=== PATIENT | female | born 1985 | race Caucasian/White ===

== ENCOUNTER → 2021-06-09 11:30 | Outpatient (CLI) | payer OTHER, SELFPAY ==
--- NOTE | 2021-06-09 12:29 | DI.CT.S_ITS ---
PROCEDURE: CT ABDOMEN PELVIS W CON INDICATIONS: Umbilical pain TECHNIQUE: After the administration of oral and IV contrast, axial sections were acquired from the lung bases to the pubic symphysis. Coronal and sagittal reformats were performed. For radiation dose reduction, the following was used: automated exposure control, adjustment of mA and/or kV according to patient size. COMPARISON: None. FINDINGS: Image quality: Excellent. Lung bases: Unremarkable. Heart: No significant findings. ABDOMEN: Liver: Unremarkable. Gallbladder: Unremarkable. Biliary ducts: Unremarkable. Pancreas: Unremarkable. Spleen: Unremarkable. Adrenal Glands: Unremarkable. Kidneys and Ureters: Unremarkable. Stomach and Bowel: Stomach, small bowel loops, and colon are unremarkable. Normal appendix. Peritoneum: No abnormal intraperitoneal fluid. No free air. Ventral Wall: Trace fat containing periumbilical hernia. Abdominal Nodes: No retroperitoneal or mesenteric adenopathy by size criteria. Vessels: Aorta and inferior vena cava are normal in size. PELVIS: Pelvic Organs: Unremarkable. Bladder: Unremarkable. Pelvic Nodes: No enlarged lymph nodes. Miscellaneous: No inguinal hernias are seen. Bones: Unremarkable. IMPRESSION: 1. No significant abnormality. Dictated by: Alverto Caballero M.D. on 06/09/2021 at 13:29 Approved by: Alverto Caballero M.D. on 06/09/2021 at 13:32
== END ==
PROVIDERS: PCP Internal Medicine; Referring Provider Surgery; Visit Provider Surgery
DX: K42.9 Umbilical hernia without obstruction or gangrene (principal)
CPT/HCPCS: 74177

== ENCOUNTER 2022-01-11 21:36 | Emergency (ER) | payer OTHER, SELFPAY ==
[2022-01-11 21:42] VITALS: BP 145/90; PULSE 88; RESP 18; TEMP 36.6; O2SAT 99
--- NOTE | 2022-01-11 21:59 | DI.RAD.S_ITS ---
PROCEDURE: XR HAND LT MIN 3V INDICATIONS: Injury TECHNIQUE: 3 views of the hand acquired. COMPARISON: None. FINDINGS: Bones: No fractures or dislocations. Carpal bones are normally aligned. No suspicious bony lesions. Soft tissues: No radiopaque foreign bodies. No suspicious soft tissue calcifications. IMPRESSION: 1. No fractures or radiopaque foreign bodies. Dictated by: Jorge Chaudhari M.D. on 01/11/2022 at 23:54 Approved by: Jorge Chaudhari M.D. on 01/11/2022 at 23:55
--- NOTE | 2022-01-12 00:17 | ED_ITS ---
HPI - Extremity Injury (Upper) General Chief Complaint: Extremity Injury, Upper Stated Complaint: bite on hand from pig Time Seen by Provider: 01/11/22 21:49 Source: patient Mode of arrival: Ambulatory History of Present Illness HPI narrative: 36-year-old female nonsmoker without contributory medical history presents with a chief complaint of pain to her left index and middle finger after being bitten by her pet pig. Keep in mind, her pig ways upwards of 750 lb and bit with her molars when being fed let us. The patient has full but painful range of motion. There are no breaks in the skin. She denies any numbness, tingling or wea kness. She has pain with range of motion and improvement with rest. Related Data Home Medications Medication Instructions Recorded Confirmed B-complex with vitamin C 1 tab PO DAILY 05/24/21 05/31/21 budesonide-formoterol HFA 80 2 puff inhalation BID 05/24/21 05/31/21 mcg-4.5 mcg/actuation aerosol inhaler (Symbicort) bumetanide 2 mg tablet 2 mg PO BID 05/24/21 05/31/21 carvedilol 6.25 mg tablet 6.25 mg PO BID 05/24/21 05/31/21 losartan 25 mg tablet 25 mg PO BID 05/24/21 05/31/21 potassium chloride 20 mEq 20 meq PO DAILY 05/24/21 05/31/21 tablet,extended release(part/cryst) (Klor-Con M) spironolactone 25 mg tablet 25 mg PO DAILY 05/24/21 05/31/21 Previous Rx's Medication Instructions Recorded drospirenone 3 mg-ethinyl 1 tab PO DAILY #113 tabs 05/30/21 estradiol 0.02 mg tablet (BILL (28)) Allergies Allergy/AdvReac Type Severity Reaction Status Date / Time Penicillins Allergy Intermediate Hives Verified 05/31/21 13:42 Review of Systems Review of Systems Narrative: GENERAL: Denies chills, fatigue, malaise, fever, sweats. HEENT: Denies sinus pain, ear pain, sore throat, difficulty swallowing, dizziness. RESPIRATORY: Denies dyspnea, cough, wheezing, hemoptysis, sputum. CARDIOVASCULAR: Denies chest pain, palpitations, orthopnea, edema, GASTROINTESTINAL: Denies nausea, vomiting, abdominal pain, diarrhea, constipation, melena. : Denies dysuria, frequency, incontinence, hematuria, urinary retention. MUSCULOSKELETAL: See HPI SKIN: Denies rash, skin lesions, or other NEUROLOGIC: Denies weakness, headache, numbness, change in speech, confusion, seizures, incoordination. PSYCHIATRIC: No concerning psychosocial issues. 12 point review of systems is negative except for those stated above Patient History Medical History Anemia (~2014) Anxiety (~2008) Chicken pox (~1990) Fibromyalgia (~2011) Infertility Ovarian cyst Painful menstrual periods PCOS (polycystic ovarian syndrome) Social History Smoking Status: Never smoker Smoking Status: Never smoker alcohol intake frequency: holidays/special occasions only Substance Use Type: does not use Exam Narrative Exam Narrative: GEN: AOx3 and in mild distress EYES: Pupils are equal, round, and reactive to light and accommodation. Extraoccular muscles are intact bilaterally. There is no subconjunctival hemorrhage or exudate. CHEST: Lungs are clear to auscultation bilaterally and free of wheezes, rales, or rhonchi. Heart rate is regular rhythm, there are no murmurs, clicks, rubs, or gallops. There is no chest wall tenderness. ABD: Abdomen is soft and nontender. There is no guarding or rebound. Bowel sounds are normal in all 4 quadrants. There is no mass or organomegaly. EXT: Full but painful range of motion of index and middle finger on left hand with no obvious external manifestation of injury. SKIN: Warm, pink, and dry. No erythema or rash Initial Vital Signs Initial Vital Signs: Vital Signs Temperature 98 F 01/11/22 21:42 Pulse Rate 88 01/11/22 21:42 Respiratory Rate 18 01/11/22 21:42 Blood Pressure 145/90 H 01/11/22 21:42 Pulse Oximetry 99 01/11/22 21:42 Oxygen Delivery Method 01/11/22 21:42 Procedures Orthopedic Splinting/Casting Injury #1: Side: left Upper Extremity Injury Location: finger Upper Extremity Immobilizer: aluminum form splint Post splinting neuro exam: intact Post splinting vascular exam: intact Placed by: Nursing Course Orders Ordered: ED Orders 01/11/22 21:59 XR hand LT min 3V Stat Vital Signs Vital signs: Vital Signs - 8 hr 01/11/22 21:42 Temperature 98 F Pulse Rate 88 Respiratory Rate 18 Blood Pressure 145/90 H Pulse Oximetry 99 Oxygen Delivery Method Room Air MDM - Extremity Injury (Upper) Imaging Data Extremity x-ray #1: Radiologist's Impression: [address] [id number] ReportSigned Patient: Sandi Duncan DMR#: [id number]: 04/27/1973Acct:[id number]/Sex: 48 / FDate of Service: 01/11/22Loc: EDAccession Number: [id number] Procedure: XR elbow LT min 3V Ordering Provider: Bennett Galvan D.O. PROCEDURE: XR ELBOW LT MIN 3V INDICATIONS: fall with wrist injury TECHNIQUE: 3 views of the elbow were acquired. COMPARISON: None. FINDINGS: Bones: No fractures or dislocations. No suspicious bony lesions. Soft tissues: No elbow joint effusion. No suspicious soft tissue calcifications. IMPRESSION: 1. No fracture or dislocation. Dictated by: Jorge Chaudhari M.D. on 01/11/2022 at 22:37 Approved by: Jorge Chaudhari M.D. on 01/11/2022 at 22:38 Discharge Plan Departure Patient Disposition: Home Clinical Impression: Contusion of finger of left hand Instructions: DI for Contusion Activity Restrictions/Additional Instructions: *You have been diagnosed with [contusions to left index and middle finger. As we discussed your history and physical exam are reassuring and x-ray showed no obvious fracture or dislocation] *What to do: *Please continue to take your regular medications as directed. [ ] New medication prescriptions sent to your pharmacy: [ ] [ ] New medication written as a paper prescription [ ] No new medications given *Please follow up with your primary care provider in 2-3 days, call for an appointment. Let them know you were seen in the Emergency Department and that we ask that you be seen in follow up. We will electronically transmit a record of today's note if your PCP is in our system *If you do not have a primary care provider please contact the [facility] Resource line at [phone]. They will ask some questions about your medical history and help get you set up with a doctor in the community. *Return to Emergency Department if you should have any new, worsening or concerning symptoms, such as [fever greater than 101 F, shaking chills, worsening pain, persistent vomiting or other bothersome symptoms] Prescriptions: No Action drospirenone-ethinyl estradiol [BILL (28)] 3-0.02 mg tablet 1 tab PO DAILY Qty: 113 3RF Rx Instructions: Take 1 active pill daily x3 weeks, discard row of placebo tablets, and start a new pack of pills every 3 weeks. carvedilol 6.25 mg tablet 6.25 mg PO BID Rx Instructions: must administer with a meal/food spironolactone 25 mg tablet 25 mg PO DAILY losartan 25 mg tablet 25 mg PO BID budesonide-formoterol [Symbicort] 80-4.5 mcg/actuation HFA aerosol inhaler 2 puff inhalation BID bumetanide 2 mg tablet 2 mg PO BID B-complex with vitamin C Tablet 1 tab PO DAILY potassium chloride [Klor-Con M20] 20 mEq tablet,ER particles/crystals 20 meq PO DAILY Referrals: Sagar aSnz MD [Primary Care Provider] - Visit Report Forms: Patient Portal/API
--- NOTE | 2022-01-12 00:28 | PC.NURSE ---
2nd and 3rd fingers of the left hand sandra taped
== END 2022-01-12 00:29 | disposition home or self-care (01) ==
PROVIDERS: Emergency Provider Emergency Medicine; PCP Internal Medicine
DX: S60.022A Contusion of left index finger without damage to nail, initial encounter (principal); S60.032A Contusion of left middle finger without damage to nail, initial encounter; W55.41XA Bitten by pig, initial encounter
CPT/HCPCS: 73130; 99281; 99283

== ENCOUNTER 2022-06-30 22:15 | Emergency (ER) | payer OTHER, SELFPAY ==
[2022-06-30] VITALS (7 sets, daily range): BP systolic 112–162; BP diastolic 68–101; PULSE 82–117; RESP 15–36; O2SAT 99–100; BMI 40.1
--- NOTE | 2022-06-30 22:21 | DI.RAD.S_ITS ---
PROCEDURE: XR CHEST 1V INDICATIONS: chest pain TECHNIQUE: One view of the chest was acquired. COMPARISON: None. FINDINGS: Surgical changes and devices: None. Lungs and pleura: Lungs are clear. No pleural effusions or pneumothorax. Mediastinum: Mediastinal contours appear normal. Heart size is normal. Bones and chest wall: No suspicious bony lesions. Overlying soft tissues appear unremarkable. IMPRESSION: Normal for age, source of current chest pain symptoms is not seen. Dictated by: Manav Merritt M.D. on 06/30/2022 at 23:00 Approved by: Manav Merritt M.D. on 06/30/2022 at 23:00
--- NOTE | 2022-06-30 22:25 | DI.US.S_ITS ---
PROCEDURE: US ABDOMEN LIMITED INDICATIONS: SEVERE EPIGRASTRIC PAIN TECHNIQUE: Real-time focused scanning was performed of the abdomen, with image documentation. COMPARISON: None. FINDINGS: Liver measures 18 centimeters. Echogenic appearance overall. Gallbladder is unremarkable. Wall thickness is 2-3 millimeters. CBD measures 3 millimeters. Pancreas is unremarkable, only the head is visualized. IMPRESSION: No acute sonographic abnormality. Normal appearance of the gallbladder. Increased hepatic echogenicity, most commonly seen with steatosis. Dictated by: Ridge Miller M.D. on 07/02/2022 at 10:50 Approved by: Ridge Miller M.D. on 07/02/2022 at 10:51
[2022-06-30] MEDS: PANTOPRAZOLE 40 MG VIAL IV (22:38)
[2022-06-30] MEDS: SODIUM CHLORIDE 0.9% 1,000 ML 1000 ML IV (22:38)
[2022-06-30] MEDS: HYDROMORPHONE 1 MG INJ IV ×2 (22:38→23:09)
[2022-06-30] MEDS: ASPIRIN 81 MG CHEW TAB 324 MG PO (22:38)
[2022-06-30] MEDS: ONDANSETRON 4 MG/2 ML INJ IV (22:38)
[2022-06-30 22:45] LABS: Add Manual Diff / Slide Review NO; Basophils Absolute Auto 100 /uL (0-100); Basophils Percent Auto 1.1 % (0-2); Eosinophils Absolute Auto 300 /uL (0-450); Eosinophils Percent Auto 2.8 % (2-4); Hematocrit 39.6 % (36-46); Hemoglobin 13.3 g/dL (12.0-16.0); Lymphocytes Absolute Auto 3200 /uL (1100-4500); Lymphocytes Percent Auto 27.2 % (25-40); Mean Corpuscular HGB Conc 33.7 % (30-36); Mean Corpuscular Hemoglobin 28.2 PG (26-34); Mean Corpuscular Volume 83.7 fL (80-100); Monocytes Absolute Auto 700 /uL (0-900); Monocytes Percent Auto 5.6 % (3-14); Neutrophils Absolute Auto 7400 /uL (1500-7000); Neutrophils Percent Auto 63.3 % (50-75); Platelet Count 279 X10^3/uL (150-400); Red Blood Cell Count 4.73 X10^6/uL (4.0-5.2); Red Cell Distribution Width 12.7 % (11.6-14.8); White Blood Cell Count 11.8 X10^3/uL (4.5-11.0)
[2022-06-30 22:46] LABS: INR 1.1 (0.9-1.3); Prothrombin Time 13.1 SECONDS (10.1-12.7)
[2022-06-30 22:48] LABS: PTT Partial Thromboplastin Tim 36 SECONDS (26-36)
[2022-06-30 22:50] LABS: Alanine Aminotransferase 23 IU/L (<35); Albumin 4.5 g/dL (3.5-5.0); Albumin Globulin Ratio 1.2 (1.0-2.8); Alkaline Phosphatase 82 U/L (38-126); Aspartate Aminotransferase 31 IU/L (14-36); BUN Creatinine Ratio 17.2 (6-22); Bilirubin Total 0.5 mg/dL (0.2-1.3); Blood Urea Nitrogen 17 mg/dL (7-17); Calcium 9.1 mg/dL (8.4-10.2); Carbon Dioxide 25 mmol/L (22-32); Chloride 102 mmol/L (98-107); Creatine Kinase 167 U/L (30-135); Estimated Glomerular Filt Rate > 60 mL/min (>60); Globulin 3.7 g/dL (1.7-4.1); Glucose 93 mg/dL (70-100); Lipase 129 U/L (23-300); Magnesium 1.8 mg/dL (1.6-2.3); Potassium 3.8 mmol/L (3.4-5.1); Sodium 137 mmol/L (137-145); Total Protein 8.2 g/dL (6.3-8.2)
[2022-06-30 23:01] LABS: Troponin I < 0.012 ng/mL (0.01-0.034)
[2022-06-30 23:05] LABS: CKMB % Relative Index 1.3 % (1.5-5.0); Creatine Kinase MB 2.25 ng/mL (<2.37); HEMOLYSIS 25 (0-50)
[2022-06-30 23:14] LABS: D Dimer 1199 ng/ml (<500)
--- NOTE | 2022-06-30 23:24 | DI.CT.S_ITS ---
PROCEDURE: CT ABDOMEN PELVIS W CON INDICATIONS: severe abd pain TECHNIQUE: After the administration of intravenous contrast, axial sections acquired from the lung bases to the pubic symphysis. Coronal and sagittal reformats were performed. For radiation dose reduction, the following was used: automated exposure control, adjustment of mA and/or kV according to patient size. COMPARISON: [facility], CT, CT ABDOMEN PELVIS W CON, 06/09/2021, 12:25. FINDINGS: Image quality: Excellent. Lung bases: Unremarkable. Heart: No significant findings. ABDOMEN: Liver: Unremarkable. Gallbladder: Unremarkable. Biliary ducts: Unremarkable. Pancreas: Unremarkable. Spleen: Unremarkable. Adrenal Glands: Unremarkable. Kidneys and Ureters: Unremarkable. Stomach and Bowel: Stomach, small bowel loops, and colon are unremarkable. Peritoneum: No abnormal intraperitoneal fluid. No free air. Ventral Wall: No hernias. Abdominal Nodes: No retroperitoneal or mesenteric adenopathy by size criteria. Vessels: Aorta and inferior vena cava are normal in size. PELVIS: Pelvic Organs: Unremarkable. Bladder: Unremarkable. Pelvic Nodes: No enlarged lymph nodes. Miscellaneous: No hernias are seen. A normal appendix is found at the right lower quadrant. Bones: Unremarkable. IMPRESSION: Source of current reported severe abdominal pain is not identified. No sign of urinary tract stone or obstruction. Normal appendix found right lower quadrant. Dictated by: Manav Merritt M.D. on 07/01/2022 at 0:12 Approved by: Manav Merritt M.D. on 07/01/2022 at 0:13
--- NOTE | 2022-06-30 23:24 | DI.CT.S_ITS ---
PROCEDURE: CT ANGIO CHEST PE PROTOCOL INDICATIONS: severe central chest pain, tachy, critical dimer TECHNIQUE: After the administration of intravenous contrast, 2 mm thick sections acquired from the pulmonary apices to the posterior costophrenic angles. 3-dimensional maximum intensity projection (MIP) coronal and sagittal reformats were then acquired through the thorax. For radiation dose reduction, the following was used: automated exposure control, adjustment of mA and/or kV according to patient size. COMPARISON: None. FINDINGS: Image quality: Excellent. Pulmonary arteries: Pulmonary arteries are normal in size, and demonstrate no intraluminal filling defects to suggest central pulmonary embolism. Lungs and pleura: Lungs are clear except for minimal posterior atelectasis at each lung base. No pleural effusions or pneumothorax. Central and peripheral airways are patent. Mediastinum: Heart size is normal, without pericardial effusion. No mediastinal or hilar adenopathy. Thoracic aorta is normal in caliber and enhancement. Esophagus is normal in caliber, without hiatal hernia. Bones and chest wall: No suspicious bony lesions. Ribs and thoracic spine appear intact throughout. Thyroid gland appears normal where well seen. No axillary or supraclavicular adenopathy. Abdomen: Visualized upper abdominal solid organs appear normal in the early arterial phase of enhancement. IMPRESSION: No pulmonary embolus found, slight atelectasis at each posterior lung base. Dictated by: Manav Merritt M.D. on 07/01/2022 at 0:11 Approved by: Manav Merritt M.D. on 07/01/2022 at 0:12
[2022-06-30 23:25] LABS: COVID19 -Nasal RAPID Negative (Negative)
[2022-07-01] VITALS: BP 121/70; PULSE 83; O2SAT 94
--- NOTE | 2022-07-01 00:02 | ED.CHESTPAIN ---
HPI - Chest Pain General Chief Complaint: Chest Pain Stated Complaint: possible gall bladder attack Time Seen by Provider: 06/30/22 22:25 Source: patient Mode of arrival: Ambulatory Limitations: no limitations History of Present Illness HPI narrative: 37-year-old female nonsmoker presents with a chief complaint of severe epigastric pain that started a few hours ago. She states that she had been eating prior. She states her pain is worse when she moves or takes a deep breath and seems to improve somewhat when she rests. She is nauseated but denies any vomiting. She has had no fever or chills. She denies any history of the same. She denies any shortness of breath and does admit to chest pain in the sense that a deep breath worsens her epigastric pain. She denies any recent trauma or injury, she is never had a blood clot, denies cancer or recent travel. She does not take control and is not a smoker. She denies lower extremity pain or swelling Related Data Home Medications Medication Instructions Recorded Confirmed B-complex with vitamin C 1 tab PO DAILY 05/24/21 05/31/21 budesonide-formoterol HFA 80 2 puff inhalation BID 05/24/21 05/31/21 mcg-4.5 mcg/actuation aerosol inhaler (Symbicort) bumetanide 2 mg tablet 2 mg PO BID 05/24/21 05/31/21 carvedilol 6.25 mg tablet 6.25 mg PO BID 05/24/21 05/31/21 losartan 25 mg tablet 25 mg PO BID 05/24/21 05/31/21 potassium chloride 20 mEq 20 meq PO DAILY 05/24/21 05/31/21 tablet,extended release(part/cryst) (Klor-Con M) spironolactone 25 mg tablet 25 mg PO DAILY 05/24/21 05/31/21 Previous Rx's Medication Instructions Recorded drospirenone 3 mg-ethinyl 1 tab PO DAILY #113 tabs 05/30/21 estradiol 0.02 mg tablet (BILL (28)) hydrocodone 5 mg-acetaminophen 325 1 tab PO Q4-6H PRN pain #10 tabs 07/01/22 mg tablet hydrocodone 5 mg-acetaminophen 325 1 tab PO Q4-6H PRN pain #10 tabs 07/01/22 mg tablet ondansetron 4 mg disintegrating 4 mg PO TID-QID PRN nausea and 07/01/22 tablet vomiting #10 tabs ondansetron 4 mg disintegrating 4 mg PO TID-QID PRN nausea and 07/01/22 tablet vomiting #10 tabs pantoprazole 40 mg tablet,delayed 40 mg PO DAILY #30 tabs 07/01/22 release (Protonix) pantoprazole 40 mg tablet,delayed 40 mg PO DAILY #30 tabs 07/01/22 release (Protonix) Allergies Allergy/AdvReac Type Severity Reaction Status Date / Time Penicillins Allergy Intermediate Hives Verified 05/31/21 13:42 Review of Systems Review of Systems Narrative: GENERAL: Denies chills, fatigue, malaise, fever, sweats. HEENT: Denies sinus pain, ear pain, sore throat, difficulty swallowing, dizziness. RESPIRATORY: See HPI CARDIOVASCULAR: See HPI GASTROINTESTINAL: See HPI : Denies dysuria, frequency, incontinence, hematuria, urinary retention. MUSCULOSKELETAL: denies weakness, joint pain, or bony pain SKIN: Denies rash, skin lesions, or other NEUROLOGIC: Denies weakness, headache, numbness, change in speech, confusion, seizures, incoordination. PSYCHIATRIC: No concerning psychosocial issues. 12 point review of systems is negative except for those stated above Patient History Medical History Anemia (~2014) Anxiety (~2008) Chicken pox (~1990) Fibromyalgia (~2011) Infertility Ovarian cyst Painful menstrual periods PCOS (polycystic ovarian syndrome) Social History Smoking Status: Never smoker Smoking Status: Never smoker alcohol intake frequency: holidays/special occasions only Substance Use Type: does not use Exam Narrative Exam Narrative: GENERAL: 37[] year old patient appears stated age. Well-developed patient, in obvious distress, complaining of pain HEAD: Atraumatic. Normocephalic. EYES: Pupils equal round and reactive. Extraocular motions intact. No scleral icterus. No injection or drainage. ENT: Nose without bleeding, purulent drainage. Throat without erythema, tonsillar hypertrophy or exudate. Airway patent. NECK: Trachea midline. Non tender CARDIOVASCULAR: Tachycardic but regular rhythm without murmurs, gallops, or rubs. RESPIRATORY: Clear to auscultation. Breath sounds equal bilaterally. No wheezes, rales, or rhonchi. GASTROINTESTINAL: Abdomen soft, tender in the epigastrium nondistended. EXTREMITIES: No edema or joint tenderness. BACK: Nontender without deformity or crepitance. No flank tenderness. NEURO: AOx3. SKIN: No rash or erythema of visible areas Initial Vital Signs Initial Vital Signs: Vital Signs Pulse Rate 117 H 06/30/22 22:21 Respiratory Rate 26 H 06/30/22 22:21 Blood Pressure 162/101 H 06/30/22 22:21 Pulse Oximetry 100 06/30/22 22:21 Oxygen Delivery Method Room Air 06/30/22 22:21 Course Orders Ordered: ED Orders 06/30/22 22:21 XR chest 1V Stat EKG-12 Lead Stat 06/30/22 22:25 US abdomen limited Stat 06/30/22 22:30 Complete Blood Count AUTO DIFF Stat Comprehensive Metabolic Panel Stat D Dimer Stat Lipase Stat Magnesium Stat PTT Partial Thromboplastin Estevan Stat Prothrombin Time INR Stat Troponin & CK Cardiac Panel Stat 06/30/22 23:08 COVID19 -Nasal RAPID Stat 06/30/22 23:24 CT abdomen pelvis w con Stat CT angio chest PE protocol Stat 07/01/22 00:38 Troponin & CK Cardiac Panel Stat Discontinued Medications Hydrocodone Bitart/Acetaminophen (Hydrocodone/Acet 5/325 Prepack) 1 bottle MISC SEEINSTR ONE Stop: 07/01/22 02:02 Aspirin (Aspirin 81 Mg Chew Tab) 324 mg PO NOW ONE Stop: 06/30/22 22:22 Last Admin: 06/30/22 22:38 Dose: 324 mg Documented By: MARINO Hydromorphone HCl (Hydromorphone 1 Mg Inj) 1 mg IV NOW ONE Stop: 06/30/22 22:26 Last Admin: 06/30/22 22:38 Dose: 1 mg Documented By: MARINO Hydromorphone HCl (Hydromorphone 1 Mg Inj) 1 mg IV NOW ONE Stop: 06/30/22 23:03 Last Admin: 06/30/22 23:09 Dose: 1 mg Documented By: MARINO Sodium Chloride (Normal Saline 0.9%) 1,000 mls @ 1,000 mls/hr IV BOLUS ONE Stop: 06/30/22 23:24 Last Infusion: 06/30/22 23:30 Dose: 0 mls/hr Documented By: Admin: 06/30/22 22:38 Dose: 1,000 mls/hr Documented By: MARINO Sodium Chloride (Normal Saline 0.9%) 1,000 mls @ 1,000 mls/hr IV BOLUS ONE Stop: 07/01/22 01:26 Last Infusion: 07/01/22 01:41 Dose: 0 mls/hr Documented By: Admin: 07/01/22 00:34 Dose: 1,000 mls/hr Documented By: JEREMIAH Metoclopramide HCl (Metoclopramide 10 Mg/2 Ml Inj) 10 mg IV NOW ONE Stop: 07/01/22 00:28 Last Admin: 07/01/22 00:34 Dose: 10 mg Documented By: JEREMIAH Ondansetron HCl (Ondansetron 4 Mg/2 Ml Inj) 4 mg IV NOW ONE Stop: 06/30/22 22:26 Last Admin: 06/30/22 22:38 Dose: 4 mg Documented By: MARINO Ondansetron HCl (Ondansetron 4 Mg Odt Prepack) 1 bottle MISC SEEINSTR ONE Stop: 07/01/22 02:02 Pantoprazole Sodium (Pantoprazole 40 Mg Vial) 40 mg IV NOW ONE Stop: 06/30/22 22:26 Last Admin: 06/30/22 22:38 Dose: 40 mg Documented By: MARINO Vital Signs Vital signs: Vital Signs - 8 hr 06/30/22 22:21 06/30/22 22:23 06/30/22 22:30 Pulse Rate 117 H 107 H 106 H Respiratory Rate 26 H 20 24 Blood Pressure 162/101 H Pulse Oximetry 100 Oxygen Delivery Method Room Air 06/30/22 23:00 06/30/22 23:19 06/30/22 23:19 Pulse Rate 83 82 Respiratory Rate 36 H 15 Blood Pressure 125/69 Pulse Oximetry 100 99 Oxygen Delivery Method 06/30/22 23:30 06/30/22 23:53 06/30/22 23:53 Pulse Rate 83 85 Respiratory Rate 19 Blood Pressure 112/68 Pulse Oximetry 99 99 Oxygen Delivery Method 07/01/22 00:00 07/01/22 00:00 Pulse Rate 83 Respiratory Rate Blood Pressure 121/70 Pulse Oximetry 94 Oxygen Delivery Method MDM - Chest Pain Lab Data 06/30/22 22:30 06/30/22 22:30 Labs: Lab Results 06/30/22 06/30/22 06/30/22 Range/Units 22:30 22:30 22:30 WBC 11.8 H (4.5-11.0) X10^3/uL RBC 4.73 (4.0-5.2) X10^6/uL Hgb 13.3 (12.0-16.0) g/dL Hct 39.6 (36-46) % MCV 83.7 (80-100) fL MCH 28.2 (26-34) PG MCHC 33.7 (30-36) % RDW 12.7 (11.6-14.8) % Plt Count 279 (150-400) X10^3/uL Neut % (Auto) 63.3 (50-75) % Lymph % (Auto) 27.2 (25-40) % Dawson % (Auto) 5.6 (3-14) % Eos % (Auto) 2.8 (2-4) % Baso % (Auto) 1.1 (0-2) % Neut # (Auto) 7400 H (2853-8284) /uL Lymph # (Auto) 3200 (6820-7982) /uL Dawson # (Auto) 700 (0-900) /uL Eos # (Auto) 300 (0-450) /uL Baso # (Auto) 100 (0-100) /uL PT 13.1 H (10.1-12.7) SECONDS INR 1.1 (0.9-1.3) APTT 36 (26-36) SECONDS D-Dimer (<500) ng/ml Sodium 137 (137-145) mmol/L Potassium 3.8 (3.4-5.1) mmol/L Chloride 102 (98-107) mmol/L Carbon Dioxide 25 (22-32) mmol/L BUN 17 (7-17) mg/dL Creatinine 0.99 (0.52-1.04) mg/dL Estimated GFR > 60 (>60) mL/min BUN/Creatinine Ratio 17.2 (6-22) Glucose 93 (70-100) mg/dL Calcium 9.1 (8.4-10.2) mg/dL Magnesium 1.8 (1.6-2.3) mg/dL Total Bilirubin 0.5 (0.2-1.3) mg/dL AST 31 (14-36) IU/L ALT 23 (<35) IU/L Alkaline Phosphatase 82 (38-126) U/L Total Creatine Kinase 167 H (30-135) U/L CK-MB (CK-2) 2.25 (<2.37) ng/mL CK-MB (CK-2) Rel Index 1.3 L (1.5-5.0) % Troponin I < 0.012 (0.01-0.034) ng/mL Total Protein 8.2 (6.3-8.2) g/dL Albumin 4.5 (3.5-5.0) g/dL Globulin 3.7 (1.7-4.1) g/dL Albumin/Globulin Ratio 1.2 (1.0-2.8) Lipase 129 (23-300) U/L SARS-CoV-2 (PCR) (Negative) 06/30/22 06/30/22 07/01/22 Range/Units 22:30 23:08 00:38 WBC (4.5-11.0) X10^3/uL RBC (4.0-5.2) X10^6/uL Hgb (12.0-16.0) g/dL Hct (36-46) % MCV (80-100) fL MCH (26-34) PG MCHC (30-36) % RDW (11.6-14.8) % Plt Count (150-400) X10^3/uL Neut % (Auto) (50-75) % Lymph % (Auto) (25-40) % Dawson % (Auto) (3-14) % Eos % (Auto) (2-4) % Baso % (Auto) (0-2) % Neut # (Auto) (1193-7624) /uL Lymph # (Auto) (1735-1813) /uL Dawson # (Auto) (0-900) /uL Eos # (Auto) (0-450) /uL Baso # (Auto) (0-100) /uL PT (10.1-12.7) SECONDS INR (0.9-1.3) APTT (26-36) SECONDS D-Dimer 1199 H (<500) ng/ml Sodium (137-145) mmol/L Potassium (3.4-5.1) mmol/L Chloride (98-107) mmol/L Carbon Dioxide (22-32) mmol/L BUN (7-17) mg/dL Creatinine (0.52-1.04) mg/dL Estimated GFR (>60) mL/min BUN/Creatinine Ratio (6-22) Glucose (70-100) mg/dL Calcium (8.4-10.2) mg/dL Magnesium (1.6-2.3) mg/dL Total Bilirubin (0.2-1.3) mg/dL AST (14-36) IU/L ALT (<35) IU/L Alkaline Phosphatase (38-126) U/L Total Creatine Kinase 125 (30-135) U/L CK-MB (CK-2) 1.76 (<2.37) ng/mL CK-MB (CK-2) Rel Index 1.4 L (1.5-5.0) % Troponin I < 0.012 (0.01-0.034) ng/mL Total Protein (6.3-8.2) g/dL Albumin (3.5-5.0) g/dL Globulin (1.7-4.1) g/dL Albumin/Globulin Ratio (1.0-2.8) Lipase (23-300) U/L SARS-CoV-2 (PCR) Negative (Negative) MDM Narrative Medical decision making narrative: CC: 37-year-old female with relatively sudden onset epigastric pain Complicating co-morbidities: CHF, hypertension, PCOS Data collected from: Patient Medical records reviewed: Prior notes reviewed in our EMR Differential considered, but not limited to: Gallbladder disease, pancreatitis, bowel obstruction, pulmonary embolism versus other Exam documented above, pertinent findings include: Patient obviously uncomfortable, tachycardic with obvious pleuritic type chest pain, epigastric pain on palpation Lab Test results independently reviewed as above. Pertinent findings: Very slight elevation in white blood cells without signs of anemia or left shift. D-dimer 1199, electrolytes, LFTs, bilirubin and lipase within normal limits Independently reviewed EKG as above Imaging studies independently reviewed: Abdominal ultrasound without significant findings, CTA performed given elevated dimer, no PE, pneumonia or other abnormal finding. No source of pain identified and abdomen and pelvis CT Treatments: Dilaudid, fluids, Zofran with improvement Re-evaluations: Improved after above Discussion: Patient with severe epigastric pain after eating and concern for gallbladder disease, pancreatitis, pulmonary embolism versus other. Patient has very reassuring labs other than elevated D-dimer, CT angiogram shows no pulmonary embolism, ultrasound and abdominal CT have no significant abnormal findings and labs are reassuring as noted. Possibly esophageal spasm Disposition: see below, along with detailed discharge instructions that have been reviewed with patient as well as indications for ED re-evaluation and additional outpatient follow up Discharge Plan Departure Patient Disposition: Home Clinical Impression: Acute epigastric pain Instructions: DI for Abdominal Pain-Adult Activity Restrictions/Additional Instructions: *You have been diagnosed with [abdominal pain] * As we discussed your history and physical exam as well as labs and imaging are very reassuring. There is no evidence of any severe diagnoses that would require a specific or immediate intervention. *What to do: *Please continue to take your regular medications as directed. [x ] New medication prescriptions sent to your pharmacy: [[facility] ] *Please follow up with your primary care provider in 2-3 days, call for an appointment. Let them know you were seen in the Emergency Department and that we ask that you be seen in follow up. We will electronically transmit a record of today's note if your PCP is in our system *Please consider a clear liquid diet for the next 24-48 hours and then slowly advance to regular as tolerated. Also, try to avoid alcohol, nicotine, caffeine, spicy, acidic or fatty foods as this may worsen your symptoms *If you do not have a primary care provider please contact the [facility] Resource line at [phone]. They will ask some questions about your medical history and help get you set up with a doctor in the community. *Return to Emergency Department if you should have any new, worsening or concerning symptoms, such as [fever greater than 101 F, shaking chills, worsening pain, persistent vomiting or other bothersome symptoms] You have been prescribed a short course of narcotic medications. These are potentially dangerous and addictive medications that should be used carefully. While on these medications you cannot drive or operate heavy machinery. Additionally, you cannot sign legal documents or perform any duties such as this. 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 Please understand that we cannot provide further refills of narcotics or controlled substances through the ED and your pain management will need to be through your Primary Care Provider Prescriptions: New hydrocodone-acetaminophen 5-325 mg tablet 1 tab PO Q4-6H PRN (Reason: pain) Qty: 10 0RF pantoprazole [Protonix] 40 mg tablet,delayed release (DR/EC) 40 mg PO DAILY Qty: 30 0RF ondansetron 4 mg tablet,disintegrating 4 mg PO TID-QID PRN (Reason: nausea and vomiting) Qty: 10 0RF hydrocodone-acetaminophen 5-325 mg tablet 1 tab PO Q4-6H PRN (Reason: pain) Qty: 10 0RF pantoprazole [Protonix] 40 mg tablet,delayed release (DR/EC) 40 mg PO DAILY Qty: 30 0RF ondansetron 4 mg tablet,disintegrating 4 mg PO TID-QID PRN (Reason: nausea and vomiting) Qty: 10 0RF No Action drospirenone-ethinyl estradiol [BILL (28)] 3-0.02 mg tablet 1 tab PO DAILY Qty: 113 3RF Rx Instructions: Take 1 active pill daily x3 weeks, discard row of placebo tablets, and start a new pack of pills every 3 weeks. carvedilol 6.25 mg tablet 6.25 mg PO BID Rx Instructions: must administer with a meal/food spironolactone 25 mg tablet 25 mg PO DAILY losartan 25 mg tablet 25 mg PO BID budesonide-formoterol [Symbicort] 80-4.5 mcg/actuation HFA aerosol inhaler 2 puff inhalation BID bumetanide 2 mg tablet 2 mg PO BID B-complex with vitamin C Tablet 1 tab PO DAILY potassium chloride [Klor-Con M20] 20 mEq tablet,ER particles/crystals 20 meq PO DAILY Referrals: Sagar Sanz MD [Primary Care Provider] - Stand Alone Forms: Patient Portal/API
[2022-07-01 00:30] VITALS: BP 119/76; PULSE 84; O2SAT 92
[2022-07-01] MEDS: SODIUM CHLORIDE 0.9% 1,000 ML 1000 ML IV (00:34)
[2022-07-01] MEDS: METOCLOPRAMIDE 10 MG/2 ML INJ IV (00:34)
[2022-07-01 00:57] LABS: Creatine Kinase 125 U/L (30-135)
[2022-07-01 01:00] VITALS: BP 127/83; PULSE 82; RESP 27; O2SAT 97
[2022-07-01 01:10] LABS: Troponin I < 0.012 ng/mL (0.01-0.034)
[2022-07-01 01:12] LABS: CKMB % Relative Index 1.4 % (1.5-5.0); Creatine Kinase MB 1.76 ng/mL (<2.37)
[2022-07-01 01:30] VITALS: BP 111/63; PULSE 83; RESP 25; O2SAT 99
[2022-07-01 02:00] VITALS: BP 120/87; PULSE 93; RESP 26; O2SAT 100
[2022-07-01] MEDS: ONDANSETRON 4 MG ODT PREPACK 1 BOTTLE MISC (02:23)
[2022-07-01] MEDS: HYDROCODONE/ACET 5/325 PREPACK 1 BOTTLE MISC (02:23)
== END 2022-07-01 02:50 | disposition home or self-care (01) ==
PROVIDERS: Emergency Provider Emergency Medicine; PCP Internal Medicine
DX: R10.13 Epigastric pain (principal); R11.0 Nausea; R07.9 Chest pain, unspecified; Z20.822 Contact with and (suspected) exposure to COVID-19
CPT/HCPCS: 36415; 71045; 71275; 74177; 76705; 80053; 82550; 82553; 83690; 83735; 84484; 85025; 85379; 85610; 85730; 87635; 93005; 96361; 96374; 96375; 96376; 99284; C9803; C9113; J1170; J2405; J2765; Q9967

== ENCOUNTER 2025-01-12 15:26 | Emergency (ER) | payer OTHER, SELFPAY ==
[2025-01-12] VITALS (7 sets, daily range): BP systolic 108–134; BP diastolic 70–88; PULSE 89–109; RESP 15–22; TEMP 36.4; O2SAT 95–98; BMI 36.5
--- NOTE | 2025-01-12 15:39 | EKG_ITS ---
[place] [id number] [place] [id number] Test Date: 2025-01-12 Pat Name: Sandy Baron Department: [facility] Room: Gender: Female [employer] Installer: JOSÉ MIGUEL : 1985 Requested By: Order Number: [id number] Reading MD: Paulo Oden MD Measurements Intervals [place] Rate: 99 P: 45 TN: 184 QRS: 6 QRSD: 92 T: 62 QT: 358 QTc: 459 Interpretive Statements Normal sinus rhythm Anterior infarct , age undetermined Electronically Signed On 01-12-2025 16:10:37 PDT by Paulo Oden MD
--- NOTE | 2025-01-12 15:39 | DI.RAD.S_ITS ---
PROCEDURE: XR CHEST 1V INDICATIONS: Shortness of breath TECHNIQUE: One view of the chest was acquired. COMPARISON: [facility], CR, XR CHEST 1V, 06/30/2022, 22:23. FINDINGS: Surgical changes and devices: None. Lungs and pleura: Lungs are clear. No pleural effusions or pneumothorax. Mediastinum: Mediastinal contours appear normal. Heart size is normal. Bones and chest wall: No suspicious bony lesions. Overlying soft tissues appear unremarkable. IMPRESSION: No acute cardiopulmonary pathology. Dictated by: Odin Young M.D. on 01/12/2025 at 17:05 Approved by: Odin Young M.D. on 01/12/2025 at 17:05
--- NOTE | 2025-01-12 15:45 | ED.SOB ---
HPI - SOB/Dyspnea General Chief Complaint: Shortness of Breath/Dyspnea Stated Complaint: SOB/Heart failure, albuterol not working Time Seen by Provider: 01/12/25 15:44 Source: patient Mode of arrival: Ambulatory Limitations: no limitations History of Present Illness HPI Narrative: 39-year-old female history of asthma CHF presents with 2 days worsening cough whereby she is vomiting fluids due to severe in severity and intensity of cough despite using her inhalers and taking all her medications for CHF. She denies chest pain, diaphoeresis, back pain, abdominal pain, increased leg pain, leg swelling or weight gain. Nothing makes it better or worse. No sick contacts. Other than what is stated 14 point review of system is negative. Related Data Home Medications ?Medication ?Instructions ?Recorded ?Confirmed B-complex with vitamin C 1 tab PO DAILY 05/24/21 05/21/23 budesonide-formoterol HFA 80 2 puff inhalation BID 05/24/21 05/21/23 mcg-4.5 mcg/actuation aerosol inhaler (Symbicort) carvedilol 6.25 mg tablet 6.25 mg PO BID 05/24/21 05/21/23 losartan 25 mg tablet 25 mg PO BID 05/24/21 05/21/23 potassium chloride 20 mEq 20 meq PO DAILY 05/24/21 05/21/23 tablet,extended release(part/cryst) (Klor-Con M) spironolactone 25 mg tablet 25 mg PO DAILY 05/24/21 05/21/23 bumetanide 0.5 mg tablet mg PO 05/21/23 05/21/23 Previous Rx's ?Medication ?Instructions ?Recorded ondansetron 4 mg disintegrating 4 mg PO TID-QID PRN nausea and 07/01/22 tablet vomiting #10 tabs pantoprazole 40 mg tablet,delayed 40 mg PO DAILY #30 tabs 07/01/22 release (Protonix) prednisone 20 mg tablet 40 mg (2 x 20 mg) PO DAILY #4 tabs 05/21/23 prednisone 20 mg tablet 20 mg PO BID 5 days #10 tabs 01/12/25 Allergies Allergy/AdvReac Type Severity Reaction Status Date / Time Penicillins Allergy Intermediate Hives Verified 05/21/23 17:40 Review of Systems Review of Systems ROS Unobtainable: All systems reviewed & are unremarkable except as noted in HPI and below Patient History Medical History Anemia (~2014) Anxiety (~2008) Chicken pox (~1990) Fibromyalgia (~2011) Infertility Ovarian cyst Painful menstrual periods PCOS (polycystic ovarian syndrome) Social History Smoking Status: Never smoker Smoking Status: Never smoker alcohol intake frequency: holidays/special occasions only Exam Narrative Exam Narrative: GENERAL: [39] year old patient appears stated age. Well-developed patient, in mild distress. HEAD: Atraumatic. Normocephalic. EYES: Pupils equal round and reactive. Extraocular motions intact. No scleral icterus. No injection or drainage. ENT: Nose without bleeding, purulent drainage. Throat without erythema, tonsillar hypertrophy or exudate. Airway patent. NECK: Trachea midline. Non tender CARDIOVASCULAR: Regular rate and rhythm without murmurs, gallops, or rubs. RESPIRATORY: Decreased breath sounds with faint wheezes at the bases GASTROINTESTINAL: Abdomen soft, non-tender, nondistended. EXTREMITIES: No edema or joint tenderness. BACK: Nontender without deformity or crepitance. No flank tenderness. NEURO: AOx3. SKIN: No rash or erythema of visible areas Initial Vital Signs Initial Vital Signs: Vital Signs Temperature 97.6 F 01/12/25 15:35 Pulse Rate 104 H 01/12/25 15:35 Respiratory Rate 20 01/12/25 15:35 Blood Pressure 134/88 01/12/25 15:35 Pulse Oximetry 95 01/12/25 15:35 Oxygen Delivery Method Room Air 01/12/25 15:35 Scores HEART Score Heart Score history: Slightly Suspicious Heart Score EKG: Normal Heart Score Age: < 45 years old Heart Score risk factors: No known risk factors Heart Score troponin: < or = to normal limit Heart Score Total: 0 Course Orders Ordered: ED Orders 01/12/25 15:39 XR chest 1V Stat EKG-12 Lead Stat Measure peak expiratory flow STAT RT Consult Eval and Treat STAT 01/12/25 15:45 Complete Blood Count AUTO DIFF Stat Comprehensive Metabolic Panel Stat Lactate (Lactic Acid) Stat NT-proBNP (BNP-Adult 18+) Stat Prothrombin Time INR Stat Troponin I Stat 01/12/25 15:55 Covid-19 + FLU A/B + RSV - PCR Stat 01/12/25 18:31 Troponin I Stat 01/12/25 19:18 CT angio chest PE protocol Stat Discontinued Medications Albuterol/Ipratropium (Albuterol/Ipratropium 3 Ml Ampul) 3 ml INH NOW ONE Stop: 01/12/25 19:06 Last Admin: 01/12/25 19:11 Dose: 3 ml Methylprednisolone (Methylprednisolone Succ 125 Mg/2 Ml Vial) 125 mg IV NOW ONE Stop: 01/12/25 17:07 Last Admin: 01/12/25 18:10 Dose: 125 mg Potassium Chloride (Potassium Chloride 20 Meq/15 Ml Udc) 40 meq PO NOW ONE Stop: 01/12/25 17:36 Last Admin: 01/12/25 18:12 Dose: 40 meq Vital Signs Vital signs: Vital Signs - 8 hr 01/12/25 15:35 01/12/25 18:36 01/12/25 18:36 Temperature 97.6 F Pulse Rate 104 H 109 H Respiratory Rate 20 Blood Pressure 134/88 108/77 Pulse Oximetry 95 97 Oxygen Delivery Method Room Air Fraction of Inspired Oxygen 01/12/25 19:00 01/12/25 19:00 01/12/25 19:19 Temperature Pulse Rate 101 H 89 Respiratory Rate 15 18 Blood Pressure 109/70 Pulse Oximetry 98 97 Oxygen Delivery Method Room Air Room Air Fraction of Inspired Oxygen 21 01/12/25 19:30 01/12/25 19:30 01/12/25 19:48 Temperature Pulse Rate 94 H 99 H Respiratory Rate 21 Blood Pressure 113/79 Pulse Oximetry 96 98 Oxygen Delivery Method Room Air Room Air Fraction of Inspired Oxygen 01/12/25 19:48 01/12/25 20:00 01/12/25 20:00 Temperature Pulse Rate 94 H Respiratory Rate 22 Blood Pressure 132/83 129/87 Pulse Oximetry 97 Oxygen Delivery Method Room Air Fraction of Inspired Oxygen MDM - SOB/Dyspnea Lab Data 01/12/25 15:45 01/12/25 15:45 Labs: Lab Results 01/12/25 01/12/25 01/12/25 Range/Units 15:45 15:55 18:31 WBC 7.3 (4.5-11.0) X10^3/uL RBC 5.11 (4.0-5.2) X10^6/uL Hgb 14.4 (12.0-16.0) g/dL Hct 41.4 (36-46) % MCV 81.1 (80-100) fL MCH 28.2 (26-34) PG MCHC 34.8 (30-36) % RDW 12.8 (11.6-14.8) % Plt Count 349 (150-400) X10^3/uL Neut % (Auto) 54.9 (50-75) % Lymph % (Auto) 31.2 (25-40) % Pettis % (Auto) 6.5 (3-14) % Eos % (Auto) 6.2 H (2-4) % Baso % (Auto) 1.2 (0-2) % Neut # (Auto) 4000 (6814-0389) /uL Lymph # (Auto) 2300 (3062-5491) /uL Pettis # (Auto) 500 (0-900) /uL Eos # (Auto) 500 H (0-450) /uL Baso # (Auto) 100 (0-100) /uL PT 13.9 H (9.4-12.5) SECONDS INR 1.2 (0.9-1.3) Sodium 139 (137-145) mmol/L Potassium 3.3 L (3.4-5.1) mmol/L Chloride 98 (98-107) mmol/L Carbon Dioxide 27 (22-32) mmol/L BUN 8 (7-17) mg/dL Creatinine 1.04 (0.52-1.04) mg/dL Estimated GFR > 60 (>60) mL/min BUN/Creatinine Ratio 7.7 (6-22) Glucose 105 H (70-99) mg/dL Lactate 1.3 (0.7-2.1) mmol/L Calcium 9.9 (8.4-10.2) mg/dL Total Bilirubin 0.7 (0.2-1.3) mg/dL AST 29 (14-36) IU/L ALT 15 (<35) IU/L Alkaline Phosphatase 84 (38-126) U/L Troponin I < 0.012 < 0.012 (0.01-0.034) ng/mL NT-Pro-B Natriuret Pep 50 (<125) pg/mL Total Protein 9.1 H (6.3-8.2) g/dL Albumin 5.2 H (3.5-5.0) g/dL Globulin 3.9 (1.7-4.1) g/dL Albumin/Globulin Ratio 1.3 (1.0-2.8) SARS-CoV-2 (PCR) Negative (Negative) Influenza A (RT-PCR) Flu a negative (NEGATIVE) Influenza B (RT-PCR) Flu b negative (NEGATIVE) RSV (PCR) Negative (Negative) Imaging Data Chest x-ray: Radiologist's Impression: [address] [address] XRay Report Signed Patient: Sandy Baron MR#: [id number] : 1985 Acct:[id number] Age/Sex: 39 / F Date of Service: 01/12/25 Loc: ED Accession Number: [id number] Procedure: XR chest 1V Ordering Provider: Paulo Parada D.O. PROCEDURE: XR CHEST 1V INDICATIONS: Shortness of breath TECHNIQUE: One view of the chest was acquired. [facility]23. FINDINGS: Surgical changes and devices: None. Lungs and pleura: Lungs are clear. No pleural effusions or pneumothorax. Mediastinum: Mediastinal contours appear normal. Heart size is normal. Bones and chest wall: No suspicious bony lesions. Overlying soft tissues appear unremarkable. IMPRESSION: No acute cardiopulmonary pathology. CT scan - chest: Radiologist's Impression: [address] [address] [address] Scan Report Signed Patient: Sandy Baron MR#: [id number] : 1985 Acct:[id number] Age/Sex: 39 / F Date of Service: 01/12/25 Loc: ED Accession Number: [id number] Procedure: CT angio chest PE protocol Ordering Provider: Paulo Parada D.O. PROCEDURE: CT ANGIO CHEST PE PROTOCOL INDICATIONS: chest pain sob TECHNIQUE: After the administration of intravenous contrast, 2 mm thick sections acquired from the pulmonary apices to the posterior costophrenic angles. 3-dimensional maximum intensity projection (MIP) coronal and sagittal reformats were then acquired through the thorax. For radiation dose reduction, the following was used: automated exposure control, adjustment of mA and/or kV according to patient size. COMPARISON: [facility], CT, CT ANGIO CHEST PE PROTOCOL, 06/30/2022, 23:43. FINDINGS: Image quality: Nondiagnostic exam for detection of pulmonary embolism. Pulmonary arteries: Pulmonary artery is normal in caliber. Exam is technically nondiagnostic for detection of pulmonary embolism due to poor contrast opacification. No evidence of large central pulmonary emboli. Lower Neck: No enlarged lymph nodes. Thyroid: No thyroid nodules which require sonographic follow up, per consensus guidelines. Axillae: No enlarged lymph nodes. Chest Wall: Unremarkable. Bones: Unremarkable. Lungs and Pleura: No pneumothorax or pleural effusions. No consolidation or suspicious nodules. Heart: Heart size is normal. No pericardial effusion. Thoracic Vessels: No aortic aneurysm. Mediastinum and Elizabeth: No enlarged lymph nodes. Esophagus: No wall thickening. No hiatal hernia. Upper Abdomen: Visualized upper abdomen solid organs and bowel loops appear normal. IMPRESSION: Exam is technically nondiagnostic for the detection of pulmonary embolism due to poor contrast opacification. No evidence of large central pulmonary emboli. No acute cardiopulmonary process. ECG Data Interpretation: NSR HR 99 IA 184 QRS [address]-t wave change Change from 06/30/22 MDM Narrative Medical decision making narrative: All lab work, vital signs, nurse triage note, medication list, previous ER visits, and all imaging studies reviewed. Chest x-ray showed no acute process. WBC 7.3 hemoglobin 14.4 platelets 349 INR 1.2 sodium 139 potassium 3.3 right 98 CO2 27 glucose 105 acid 1.3 troponin normal and BNP 50 COVID flu RSV negative. Heart score 0. CTA did not show any evidence of large central pulmonary embolism no acute cardiopulmonary process. Patient given steroids here. Differential diagnosis CHF asthma COVID flu RSV pneumonia. DC home on prednisone rx. Discharge Plan Departure Patient Disposition: Home Clinical Impression: Acute asthma Instructions: DI for Asthma -- Adult Activity Restrictions/Additional Instructions: Return with new or worsening symptoms. Take your medicine as directed. Follow up with PCP in 1-2 weeks if no improvement in symptoms. Prescriptions: New prednisone 20 mg tablet 20 mg PO BID 5 Days Qty: 10 0RF No Action bumetanide 0.5 mg tablet PO prednisone 20 mg tablet 40 mg PO DAILY Qty: 4 0RF carvedilol 6.25 mg tablet 6.25 mg PO BID Rx Instructions: must administer with a meal/food spironolactone 25 mg tablet 25 mg PO DAILY losartan 25 mg tablet 25 mg PO BID budesonide-formoterol [Symbicort] 80-4.5 mcg/actuation HFA aerosol inhaler 2 puff inhalation BID B-complex with vitamin C Tablet 1 tab PO DAILY potassium chloride [Klor-Con M20] 20 mEq tablet,ER particles/crystals 20 meq PO DAILY pantoprazole [Protonix] 40 mg tablet,delayed release (DR/EC) 40 mg PO DAILY Qty: 30 0RF ondansetron 4 mg tablet,disintegrating 4 mg PO TID-QID PRN (Reason: nausea and vomiting) Qty: 10 0RF Referrals: Sagar Sanz MD [Primary Care Provider, Internal Medicine] Stand Alone Forms: Patient Portal/API
[2025-01-12 15:54] LABS: Add Manual Diff / Slide Review NO; Hematocrit 41.4 % (36-46); Hemoglobin 14.4 g/dL (12.0-16.0); Lymphocytes Absolute Auto 2300 /uL (1100-4500); Mean Corpuscular HGB Conc 34.8 % (30-36); Mean Corpuscular Hemoglobin 28.2 PG (26-34); Mean Corpuscular Volume 81.1 fL (80-100); Platelet Count 349 X10^3/uL (150-400)
[2025-01-12 16:04] LABS: INR 1.2 (0.9-1.3); Prothrombin Time 13.9 SECONDS (9.4-12.5)
[2025-01-12 16:07] LABS: Lactate (Lactic Acid) 1.3 mmol/L (0.7-2.1)
[2025-01-12 16:08] LABS: Alanine Aminotransferase 15 IU/L (<35); Albumin 5.2 g/dL (3.5-5.0); Albumin Globulin Ratio 1.3 (1.0-2.8); Alkaline Phosphatase 84 U/L (38-126); Blood Urea Nitrogen 8 mg/dL (7-17); Calcium 9.9 mg/dL (8.4-10.2); Carbon Dioxide 27 mmol/L (22-32); Chloride 98 mmol/L (98-107); Estimated Glomerular Filt Rate > 60 mL/min (>60); Globulin 3.9 g/dL (1.7-4.1); Glucose 105 mg/dL (70-99); HEMOLYSIS 47 (0-50); Potassium 3.3 mmol/L (3.4-5.1); Sodium 139 mmol/L (137-145); Total Protein 9.1 g/dL (6.3-8.2)
[2025-01-12 16:19] LABS: NT-proBNP (BNP-Adult 18+) 50 pg/mL (<125); Troponin I < 0.012 ng/mL (0.01-0.034)
[2025-01-12 16:45] LABS: Influenza A - CEPHEID Flu A NEGATIVE (NEGATIVE); Influenza B - CEPHEID Flu B NEGATIVE (NEGATIVE)
[2025-01-12 16:53] LABS: COVID-19 CEPHEID 4-PLEX PCR Negative (Negative)
[2025-01-12] MEDS: methylPREDNISolone succ 125 MG/2 ML VIAL IV (18:10)
[2025-01-12] MEDS: POTASSIUM CHLORIDE 20 MEQ/15 ML UDC 40 MEQ PO (18:12)
[2025-01-12 19:03] LABS: Troponin I < 0.012 ng/mL (0.01-0.034)
[2025-01-12] MEDS: ALBUTEROL/IPRATROPIUM 3 ML AMPUL INH (19:11)
--- NOTE | 2025-01-12 19:18 | DI.CT.S_ITS ---
PROCEDURE: CT ANGIO CHEST PE PROTOCOL INDICATIONS: chest pain sob TECHNIQUE: After the administration of intravenous contrast, 2 mm thick sections acquired from the pulmonary apices to the posterior costophrenic angles. 3-dimensional maximum intensity projection (MIP) coronal and sagittal reformats were then acquired through the thorax. For radiation dose reduction, the following was used: automated exposure control, adjustment of mA and/or kV according to patient size. COMPARISON: [facility], CT, CT ANGIO CHEST PE PROTOCOL, 06/30/2022, 23:43. FINDINGS: Image quality: Nondiagnostic exam for detection of pulmonary embolism. Pulmonary arteries: Pulmonary artery is normal in caliber. Exam is technically nondiagnostic for detection of pulmonary embolism due to poor contrast opacification. No evidence of large central pulmonary emboli. Lower Neck: No enlarged lymph nodes. Thyroid: No thyroid nodules which require sonographic follow up, per consensus guidelines. Axillae: No enlarged lymph nodes. Chest Wall: Unremarkable. Bones: Unremarkable. Lungs and Pleura: No pneumothorax or pleural effusions. No consolidation or suspicious nodules. Heart: Heart size is normal. No pericardial effusion. Thoracic Vessels: No aortic aneurysm. Mediastinum and Elizabeth: No enlarged lymph nodes. Esophagus: No wall thickening. No hiatal hernia. Upper Abdomen: Visualized upper abdomen solid organs and bowel loops appear normal. IMPRESSION: Exam is technically nondiagnostic for the detection of pulmonary embolism due to poor contrast opacification. No evidence of large central pulmonary emboli. No acute cardiopulmonary process. Approved by: Marcelino Conte M.D. on 01/12/2025 at 20:07
--- NOTE | 2025-01-12 19:39 | PC.NURSE ---
Pt to imaging via ED stretcher with medical instrument technician
--- NOTE | 2025-01-12 20:00 | PC.NURSE ---
Pt nakul epps ED stretcher speaking with at this time. No increased WOB or distress noted t this time. Pt states she is starting to feel much better after duo-neb and steroids. Continued plan of care discussed with patient, currently waiting for CTA results. Pt connected to cardiac, resp, blood pressure, and pulse ox monitors with alqarms on and audible. Call light within reach. remains at bedside. No further requests or complaints at this time.
== END 2025-01-12 20:59 | disposition home or self-care (01) ==
PROVIDERS: Emergency Provider Family Medicine; PCP Internal Medicine
DX: J45.909 Unspecified asthma, uncomplicated (principal); I50.9 Heart failure, unspecified
CPT/HCPCS: 36415; 71045; 71275; 80053; 83605; 83880; 84484; 85025; 85610; 87637; 93005; 93010; 94640; 96374; 99284; J2919; Q9967